=== PATIENT | male | born 1990 | race Two or more races ===

== ENCOUNTER 2020-07-13 02:13 | Emergency (ER) | payer SELFPAY ==
[~2020-07-13] VITALS: Ht 165.1 cm; Wt 68.0 kg
[2020-07-13 02:15] VITALS: BP 124/90
--- NOTE | 2020-07-13 02:15 | NUR ---
ED Nurse Note: Patient brought into ED by RA Hernandez from the streets c/o possible substance abuse. patient does admit to using meth earleir today, patient was found walking around the streets naked. patient is calm and follows directions. patient admits to smoking an unknown amount of meth. patient placed in a cardiac cath lab technologist. will continue to monitor
[2020-07-13] MEDS ORDERED: Haloperidol 5mg/ml Inj ONE (02:18)
--- NOTE | 2020-07-13 02:18 | Emergency Room Report ---
History of Present Illness General Chief Complaint: General Complaint Source: Patient, EMS, Law Enforcement Present Illness HPI 29-year-old male presents with bizarre behavior. Leslie called 911 because he was walking down the street naked and ringing a Terrell. Patient admits to using crystal methamphetamine tonight. Denies suicidal thoughts homicidal thought. Nothing made it better. Nothing made it worse. Denies any other complaint. Allergies: Coded Allergies: No Known Allergies (Unverified , 07/13/20) COVID-19 Screening Contact w/high risk pt: No Experienced COVID-19 symptoms?: No COVID-19 Testing performed RV TECHNICIAN: No Patient History Past Medical History: see triage record, old chart reviewed Past Surgical History: none Pertinent Family History: none Social History: Reports: drug use; Denies: smoking Immunizations: other Reviewed Nursing Documentation: PMH: Agreed; PSxH: Agreed Nursing Documentation-PMH Past Medical History: No Stated History Review of Systems Eye: Denies: eye pain, blurred vision ENT: Denies: ear pain, nose congestion, throat swelling Respiratory: Denies: cough, shortness of breath Cardiovascular: Denies: chest pain, palpitations Gastrointestinal: Denies: abdominal pain, diarrhea, nausea, vomiting Musculoskeletal: Denies: back pain, joint pain Skin: Denies: rash Neurological: Denies: headache, numbness Endocrine: Denies: increased thirst, increased urine Hematologic/Lymphatic: Denies: easy bruising All Other Systems: negative except mentioned in HPI Physical Exam Vital Signs Date Time Temp Pulse Resp B/P (MAP) Pulse Ox O2 Delivery O2 Flow Rate FiO2 07/13/20 02:11 98.8 117 20 124/90 (101) 96 Room Air Vitals with tachycardia Sp02 EP Interpretation: reviewed, normal General Appearance: well appearing, no apparent distress, alert Head: normocephalic, atraumatic Eyes: bilateral eye PERRL, bilateral eye EOMI ENT: hearing grossly normal, normal pharynx Neck: full range of motion, supple, no meningismus Respiratory: chest non-tender, lungs clear, normal breath sounds Cardiovascular #1: regular rate, rhythm, no murmur Gastrointestinal: normal bowel sounds, non tender, no mass, no organomegaly, no bruit, non-distended Musculoskeletal: back normal, normal range of motion, gait/station normal Psychiatric: mood/affect normal Medical Decision Making Diagnostic Impression: Primary Impression: Drug-induced psychotic disorder Qualified Codes: F19.959 - Other psychoactive substance use, unspecified with psychoactive substance-induced psychotic disorder, unspecified Additional Impression: Methamphetamine abuse ER Course Patient presents with drug-induced psychosis. He is calm here after getting Haldol. Not suicidal or homicidal. No criteria for 5150. Will discharge home in the morning. This patient is a chronic risk of self injury due to poor impulse control, limited coping skills, and judgment intermittently impaired by intoxication. I believe that the available clinical evidence to suggest that these characteristics derived primarily from personality disorder and are likely very stable over time. Hospitalization would likely attenuate risk of self-harm only during [facility] period, without lasting risk reduction. Serious self-harm , while possible, would likely be inadvertent, and because of impulsivity, and foreseeable. For these reasons, I do not believe hospitalization would provide meaningful reduction in risk of self-harm. Last Vital Signs Date Time Temp Pulse Resp B/P (MAP) Pulse Ox O2 Delivery O2 Flow Rate FiO2 07/13/20 02:11 98.8 117 20 124/90 (101) 96 Room Air Status: improved Disposition: HOME, SELF-CARE Condition: Stable Additional Instructions: Stop using drugs. Follow-up with rehab in 7 days. Return if worse. Luis Ring MD Jul 13, 2020 02:18
[2020-07-13] MEDS ORDERED: Haloperidol 5mg/ml Inj IM ONE (02:30)
[2020-07-13 05:50] VITALS: BP 133/79
--- NOTE | 2020-07-13 05:50 | NUR ---
ER DISCHARGE NOTE: Patient is cleared to be discharged per ERMD, pt is aox4, on room air, with stable vital signs. pt was given dc instructions, pt was able to verbalize understanding, pt id band removed. pt is able to ambulate with steady gait. pt took all belongings. pt given homeless resources, weather appropriate clothing and meal. patient refused to participate in mini cog assessment and refused to disclose discharge location. pt stable during discharge.
== END 2020-07-13 05:50 | disposition home or self-care (01) ==
LOC: EDBD 02:13 → EMR 02:20
DX: F19.959 Other psychoactive substance use, unspecified with psychoactive substance-induced psychotic disorder, unspecified (principal); F15.10 Other stimulant abuse, uncomplicated
CPT/HCPCS: 96372; 99283; J1630